=== PATIENT | male | born 1945 | race African-American/Black ===

== ENCOUNTER 2021-07-17 14:25 | Observation (INO) ==
[2021-07-17] MEDS ORDERED: PANTOPRAZOLE 40 MG VIAL IV STA (14:52)
[2021-07-17 15:12] LABS: Basophils # 0.1 10*3/uL (0.0-0.2); Basophils % 0.8 % (0.0-0.8); Eosinophils # 0.2 10*3/uL (0.0-0.87); Eosinophils % 2.6 % (0.00-10.9); Hematocrit 34.6 VOL% (42.0-52.0); Hemoglobin 11.7 GM/DL (14.0-18.0); Immature Granulocytes % 0.2 %; Immature Granulocytes Absolute 0.01 #; Lymphocytes # 1.7 10*3/uL (1.4-4.0); Lymphocytes % 28.5 % (21.2-54.2); Mean Corpuscular HGB Conc 33.8 GM/DL (32-36); Mean Corpuscular Volume 86.9 FL (87-102); Mean Platelet Volume 9.4 FL (9.6-12.0); Monocytes % 10.3 % (1.7-12.7); Neutrophils % 57.6 % (38.7-73.9); Platelet Count 223 T/CUMM (130-400); Red Blood Count 3.98 MC/CUMM (3.8-5.5); Red Cell Distribution Width 12.4 % (9.3-17.3); White Blood Count 6.1 T/CUMM (4-12)
[2021-07-17 15:31] LABS: INR 1.1; PT Patient Result 12.4 SECS (10.5-12.0)
[2021-07-17 15:36] LABS: Albumin 3.2 G/DL (3.4-5.0); Bilirubin,Total 0.6 MG/DL (0.20-1.00); Calcium 8.9 MG/DL (8.5-10.1); Total Protein 7.2 G/DL (6.4-8.2)
[2021-07-17 15:45] LABS: Potassium 3.7 MMOL/L (3.5-5.1)
[2021-07-17 15:52] LABS: Osmolality,Calculated 271.8 MOS/KG (273-304)
[2021-07-17] MEDS ORDERED: GLUCAGON 1 MG VIAL IM PRN (17:03)
[2021-07-17] MEDS ORDERED: ONDANSETRON 4 MG/2 ML VIAL IV PRN (17:03)
[2021-07-17] MEDS ORDERED: hydrALAZINE 20 MG/1 ML VIAL IV PRN (17:03)
[2021-07-17] MEDS ORDERED: ACETAMINOPHEN 325 MG TABLET PO PRN (17:03)
[2021-07-17] MEDS ORDERED: DEXTROSE 10% 250 ML BAG IV PRN (17:09)
[2021-07-17] MEDS: SODIUM CHLORIDE 0.9% 1,000 ML IV SCH (17:13)
[2021-07-17 18:52] LABS: Hematocrit 34.8 VOL% (42.0-52.0); Hemoglobin 11.6 GM/DL (14.0-18.0)
[2021-07-17] MEDS: PANTOPRAZOLE 40 MG VIAL IV SCH (21:32)
[2021-07-18 00:53] LABS: Hematocrit 29.4 VOL% (42.0-52.0)
[2021-07-18] MEDS: SODIUM CHLORIDE 0.9% 1,000 ML IV SCH (03:20)
[2021-07-18 05:53] LABS: Basophils % 0.9 % (0.0-0.8); Eosinophils # 0.1 10*3/uL (0.0-0.87); Hematocrit 27.7 VOL% (42.0-52.0); Hemoglobin 9.4 GM/DL (14.0-18.0); Immature Granulocytes % 0.2 %; Immature Granulocytes Absolute 0.01 #; Lymphocytes # 1.6 10*3/uL (1.4-4.0); Mean Corpuscular HGB Conc 33.9 GM/DL (32-36); Mean Corpuscular Volume 86.8 FL (87-102); Mean Platelet Volume 9.5 FL (9.6-12.0); Monocytes % 10.9 % (1.7-12.7); Platelet Count 155 T/CUMM (130-400); Red Blood Count 3.19 MC/CUMM (3.8-5.5); Red Cell Distribution Width 12.5 % (9.3-17.3); White Blood Count 4.7 T/CUMM (4-12)
[2021-07-18 06:01] LABS: INR 1.1; PT Patient Result 12.6 SECS (10.5-12.0)
[2021-07-18 06:13] LABS: Osmolality,Calculated 273.7 MOS/KG (273-304); Potassium 3.4 MMOL/L (3.5-5.1)
[2021-07-18] MEDS ORDERED: MAGNESIUM SULF RIDER 2 GM/50 ML PREMIX IV ONE (08:09)
[2021-07-18 08:30] LABS: % Iron Saturation 47.1 % (18-50); Ferritin 141.7 ng/mL (26-388)
[2021-07-18 09:13] LABS: Folate 8.8 NG/ML (5.38-24.0)
[2021-07-18] MEDS: SODIUM CHLOR 0.9% KCL 40 MEQ 40 MEQ/1,000 ML BAG IV SCH (11:04)
[2021-07-18 11:15] LABS: Hematocrit 29.8 VOL% (42.0-52.0); Hemoglobin 10.2 GM/DL (14.0-18.0)
[2021-07-18] MEDS: PANTOPRAZOLE 40 MG VIAL IV SCH ×2 (11:47→22:30)
[2021-07-18] MEDS ORDERED: BISACODYL 5 MG TABLET PO ONE (15:00)
[2021-07-18] MEDS ORDERED: POLYETHYLENE GLYCOL POWDER 255 GM BOTTLE PO ONE (18:00)
[2021-07-18 18:06] LABS: Hematocrit 35.3 VOL% (42.0-52.0); Hemoglobin 11.5 GM/DL (14.0-18.0)
[2021-07-18] MEDS ORDERED: [UNRECOGNIZED DRUG - OTHER] PO SCH (21:00)
[2021-07-18] MEDS ORDERED: OMEGA PO SCH (21:00)
[2021-07-19] MEDS: SODIUM CHLOR 0.9% KCL 40 MEQ 40 MEQ/1,000 ML BAG IV SCH ×2 (00:15→15:59)
[2021-07-19 00:43] LABS: Hematocrit 27.7 VOL% (42.0-52.0); Hemoglobin 9.4 GM/DL (14.0-18.0)
[2021-07-19] MEDS ORDERED: POLYETHYLENE GLYCOL POWDER 255 GM BOTTLE PO ONE (05:00)
[2021-07-19 05:53] LABS: Basophils % 0.8 % (0.0-0.8); Eosinophils # 0.1 10*3/uL (0.0-0.87); Eosinophils % 2.8 % (0.00-10.9); Hematocrit 27.4 VOL% (42.0-52.0); Hemoglobin 9.4 GM/DL (14.0-18.0); Immature Granulocytes % 0.2 %; Immature Granulocytes Absolute 0.01 #; Lymphocytes # 1.8 10*3/uL (1.4-4.0); Lymphocytes % 36.9 % (21.2-54.2); Mean Corpuscular HGB Conc 34.3 GM/DL (32-36); Mean Corpuscular Volume 87.5 FL (87-102); Mean Platelet Volume 9.5 FL (9.6-12.0); Monocytes % 10.1 % (1.7-12.7); Neutrophils % 49.2 % (38.7-73.9); Platelet Count 164 T/CUMM (130-400); Red Blood Count 3.13 MC/CUMM (3.8-5.5); Red Cell Distribution Width 12.6 % (9.3-17.3)
[2021-07-19 05:58] LABS: INR 1.1; PT Patient Result 12.4 SECS (10.5-12.0)
[2021-07-19 06:09] LABS: Calcium 7.9 MG/DL (8.5-10.1); Osmolality,Calculated 280.1 MOS/KG (273-304)
[2021-07-19] MEDS ORDERED: LACTATED RINGERS 1,000 ML IV SCH (08:00)
[2021-07-19] MEDS: PANTOPRAZOLE 40 MG VIAL IV SCH ×2 (08:39→21:34)
[2021-07-19] MEDS ORDERED: LIDOCAINE 2% 5 ML VIAL ONE (14:19)
[2021-07-19] MEDS ORDERED: propofoL 200 MG/20 ML VIAL IV ONE (14:19)
[2021-07-19] MEDS: CYANOCOBALAMIN 500 MCG TABLET PO SCH (16:03)
[2021-07-19] MEDS: allopurinoL 100 MG TABLET PO SCH ×2 (16:04→21:29)
[2021-07-20 04:51] LABS: Basophils % 0.8 % (0.0-0.8); Eosinophils # 0.2 10*3/uL (0.0-0.87); Eosinophils % 3.6 % (0.00-10.9); Hematocrit 27.4 VOL% (42.0-52.0); Hemoglobin 9.4 GM/DL (14.0-18.0); Immature Granulocytes % 0.2 %; Immature Granulocytes Absolute 0.01 #; Lymphocytes # 1.7 10*3/uL (1.4-4.0); Lymphocytes % 34.9 % (21.2-54.2); Mean Corpuscular HGB Conc 34.3 GM/DL (32-36); Mean Platelet Volume 9.8 FL (9.6-12.0); Monocytes % 9.2 % (1.7-12.7); Neutrophils % 51.3 % (38.7-73.9); Platelet Count 176 T/CUMM (130-400); Red Blood Count 3.15 MC/CUMM (3.8-5.5); Red Cell Distribution Width 12.6 % (9.3-17.3)
[2021-07-20 05:08] LABS: Calcium 7.9 MG/DL (8.5-10.1); Osmolality,Calculated 278.3 MOS/KG (273-304); Potassium 3.8 MMOL/L (3.5-5.1)
[2021-07-20 08:51] VITALS: BP 113/57
[2021-07-20] MEDS: CYANOCOBALAMIN 500 MCG TABLET PO SCH (09:27)
[2021-07-20] MEDS: PANTOPRAZOLE 40 MG VIAL IV SCH (09:27)
[2021-07-20] MEDS: allopurinoL 100 MG TABLET PO SCH (09:27)
== END 2021-07-20 12:04 | disposition home or self-care (01) ==
LOC: N.ED 14:25 → INTOOBSV 17:03 → N.TELES 17:03
PROVIDERS: ADMIT Internal Medicine; ATTEND Internal Medicine

== ENCOUNTER 2022-06-13 01:29 | Observation (INO) ==
[2022-06-13] MEDS ORDERED: PANTOPRAZOLE 40 MG VIAL IV STA (01:55)
[2022-06-13] MEDS ORDERED: ONDANSETRON 4 MG/2 ML VIAL IV STA (01:55)
[2022-06-13] MEDS ORDERED: SODIUM CHLORIDE 0.9% 500 ML IV STA (01:55)
[2022-06-13 02:07] LABS: Basophils # 0.1 10*3/uL (0.0-0.2); Basophils % 1.3 % (0.0-0.8); Eosinophils # 0.2 10*3/uL (0.0-0.87); Eosinophils % 3.7 % (0.00-10.9); Hematocrit 38.1 VOL% (42.0-52.0); Immature Granulocytes % 0.2 %; Immature Granulocytes Absolute 0.01 #; Lymphocytes # 2.1 10*3/uL (1.4-4.0); Lymphocytes % 37.8 % (21.2-54.2); Mean Corpuscular HGB Conc 34.1 GM/DL (32-36); Mean Corpuscular Volume 84.5 FL (87-102); Mean Platelet Volume 9.7 FL (9.6-12.0); Monocytes # 0.5 10*3/uL (0.11-0.8); Monocytes % 9.5 % (1.7-12.7); Neutrophils % 47.5 % (38.7-73.9); Platelet Count 211 T/CUMM (130-400); Red Blood Count 4.51 MC/CUMM (3.8-5.5); Red Cell Distribution Width 13.2 % (9.3-17.3); White Blood Count 5.45 T/CUMM (4-12)
[2022-06-13 02:18] LABS: INR 1.1; PT Patient Result 11.9 SECS (10.1-12.1)
[2022-06-13] MEDS ORDERED: amLODIPine 5 MG TABLET PO STA (02:25)
[2022-06-13 02:30] LABS: Albumin 3.6 G/DL (3.4-5.0); Bilirubin,Total 0.6 MG/DL (0.20-1.00); Calcium 8.7 MG/DL (8.5-10.1); Osmolality,Calculated 279.4 MOS/KG (273-304); Potassium 3.8 MMOL/L (3.5-5.1); Total Protein 7.1 G/DL (6.4-8.2)
[2022-06-13] MEDS ORDERED: ONDANSETRON 4 MG/2 ML VIAL IV PRN (03:25)
[2022-06-13] MEDS ORDERED: SIMETHICONE CHEW 125 MG TABLET PO PRN (03:25)
[2022-06-13] MEDS: LACTATED RINGERS 1,000 ML IV SCH ×2 (06:55→20:05)
[2022-06-13 08:07] LABS: Hematocrit 37.1 VOL% (42.0-52.0); Hemoglobin 12.3 GM/DL (14.0-18.0)
[2022-06-13] MEDS: PANTOPRAZOLE 40 MG VIAL IV SCH ×2 (09:25→20:09)
[2022-06-13 14:00] LABS: Hematocrit 32.9 VOL% (42.0-52.0); Hemoglobin 11.2 GM/DL (14.0-18.0)
[2022-06-13 20:02] LABS: Hematocrit 35.1 VOL% (42.0-52.0); Hemoglobin 11.8 GM/DL (14.0-18.0)
[2022-06-13] MEDS: ACETAMINOPHEN 325 MG TABLET PO PRN (20:08)
[2022-06-14 02:29] LABS: Basophils % 0.9 % (0.0-0.8); Eosinophils # 0.2 10*3/uL (0.0-0.87); Eosinophils % 4.4 % (0.00-10.9); Hematocrit 32.1 VOL% (42.0-52.0); Hemoglobin 10.9 GM/DL (14.0-18.0); Immature Granulocytes % 0.2 %; Immature Granulocytes Absolute 0.01 #; Lymphocytes # 1.9 10*3/uL (1.4-4.0); Lymphocytes % 40.7 % (21.2-54.2); Mean Corpuscular Volume 84.5 FL (87-102); Mean Platelet Volume 9.2 FL (9.6-12.0); Monocytes # 0.4 10*3/uL (0.11-0.8); Monocytes % 8.6 % (1.7-12.7); Neutrophils % 45.2 % (38.7-73.9); Platelet Count 154 T/CUMM (130-400); Red Cell Distribution Width 13.2 % (9.3-17.3); White Blood Count 4.55 T/CUMM (4-12)
[2022-06-14 02:54] LABS: Calcium 8.3 MG/DL (8.5-10.1); Osmolality,Calculated 279.3 MOS/KG (273-304); Potassium 3.8 MMOL/L (3.5-5.1)
[2022-06-14 02:57] LABS: Albumin 2.9 G/DL (3.4-5.0); Calcium 8.5 MG/DL (8.5-10.1); Osmolality,Calculated 277.4 MOS/KG (273-304); Potassium 3.7 MMOL/L (3.5-5.1); Total Protein 6.1 G/DL (6.4-8.2)
[2022-06-14] MEDS: LACTATED RINGERS 1,000 ML IV SCH ×3 (05:44→21:08)
[2022-06-14] MEDS: PANTOPRAZOLE 40 MG VIAL IV SCH (08:51)
[2022-06-15] MEDS: PANTOPRAZOLE 40 MG VIAL IV SCH ×2 (00:15→09:40)
[2022-06-15 05:07] LABS: Calcium 8.7 MG/DL (8.5-10.1); Osmolality,Calculated 279.3 MOS/KG (273-304); Potassium 3.6 MMOL/L (3.5-5.1)
[2022-06-15 07:15] LABS: Basophils % 0.6 % (0.0-0.8); Eosinophils # 0.2 10*3/uL (0.0-0.87); Eosinophils % 3.6 % (0.00-10.9); Hematocrit 31.3 VOL% (42.0-52.0); Hemoglobin 10.5 GM/DL (14.0-18.0); Immature Granulocytes % 0.4 %; Immature Granulocytes Absolute 0.02 #; Lymphocytes # 1.5 10*3/uL (1.4-4.0); Lymphocytes % 31.2 % (21.2-54.2); Mean Corpuscular HGB Conc 33.5 GM/DL (32-36); Mean Corpuscular Volume 85.1 FL (87-102); Mean Platelet Volume 9.9 FL (9.6-12.0); Monocytes # 0.4 10*3/uL (0.11-0.8); Monocytes % 9.4 % (1.7-12.7); Neutrophils % 54.8 % (38.7-73.9); Platelet Count 160 T/CUMM (130-400); Red Blood Count 3.68 MC/CUMM (3.8-5.5); Red Cell Distribution Width 13.2 % (9.3-17.3); White Blood Count 4.68 T/CUMM (4-12)
[2022-06-15] MEDS: ACETAMINOPHEN 325 MG TABLET PO PRN (09:40)
[2022-06-15] MEDS: LACTATED RINGERS 1,000 ML IV SCH (09:40)
[2022-06-15 12:30] VITALS: BP 141/60
== END 2022-06-15 14:33 | disposition home or self-care (01) ==
LOC: N.ED 01:29 → N.2W 01:29
PROVIDERS: ADMIT Internal Medicine; ATTEND Internal Medicine